=== PATIENT | female | born 1955 | race Caucasian/White ===

== ENCOUNTER 2024-10-27 07:29 | Day surgery (SDC) | payer MEDICARE, OTHER ==
[~2024-10-27] VITALS: Ht 165.1 cm; Wt 88.7 kg
[~2024-10-27 07:29] MED LIST: ALPR.25 PO; ASHWAGANDA PO; Budeprion Xl300 MG PO; CONEST.625; EPIPEN 2-P0.3 MG/0.1 IM; EPIPEN0.3 MG/0.1; FISH OIL 1,0001 EA10 PO; HAIR, SKIN AND1 EAC3 PO; LANREOTIDE120 MG/0.5 SQ; MELO7.5 PO; NYSTATIN100000 UN4; PREMARIN; THYROID60 MG PO; VIT1CAPS12; VITAMIN B125000 MC1 PO; [UNRECOGNIZED DRUG - OTHER] PO
[2024-10-27] MEDS ORDERED: Lactated Ringer's 1,000 ML IV SCH (07:45)
[2024-10-27 08:01] VITALS: BP 115/54
[2024-10-27] MEDS ORDERED: Lidocaine HCl 2% 10 ML SDA ONE (09:02)
[2024-10-27] MEDS ORDERED: propofoL 40 ML IV ONE (09:02)
--- NOTE | 2024-10-27 09:02 | NUR ---
Ambulatory in Day Surgery. History, Chart, Medications and Allergies reviewed before start of procedure. Lungs clear T/O to Auscultation. Patient confirms NPO status and agrees with scheduled surgery. Pre-Op teaching done. Pt verbalizes understanding. Patient States Post-Procedure ride home has been arranged.
--- NOTE | 2024-10-27 09:17 | NUR ---
10/27/24 0917 Yaa Rico MONITOR INTACT WITH CONTINUOUS PULSE OXIMETRY, CONTINUOUS END TITAL CO2, 3-LEAD EKG AND INTERMITTENT BLOOD PRESSURE.
[2024-10-27 09:55] VITALS: BP 127/68
[2024-10-27 10:00] VITALS: BP 114/90
--- NOTE | 2024-10-27 10:13 | NUR ---
D/C INSTRUCTIONS GIVEN TO PT & PT'S , UNDERSTANDING VERBALIZED. PT DENIES PAIN/NAUSEA, VSS, ON RA. PT DRESSED W/ HELP FROM . PT BELONGINGS RETURNED, INCLUDING PURSE. PT WHEELED TO MAIN ENTRANCE WHERE SHE WILL BE DRIVEN HOME BY IN PRIVATE VEHICLE. STEADY GAIT NOTED UPON TRANSFER. NO VISIBLE SIGNS OF DISTRESS NOTED.
== END 2024-10-27 23:00 | disposition home or self-care (01) ==
LOC: ORSCMMR 07:29 → ORD 09:00 → ORSCMMR 09:00
PROVIDERS: Internal Medicine Gastroenterology
PROC: 0DJD8ZZ Inspection of Lower Intestinal Tract, Via Natural or Artificial Opening Endoscopic (ICD-10-PCS; principal; 2024-10-27 09:00)
PROC: 0DJ08ZZ Inspection of Upper Intestinal Tract, Via Natural or Artificial Opening Endoscopic (ICD-10-PCS; principal; 2024-10-27 09:00)
DX: Z85.030 Personal history of malignant carcinoid tumor of large intestine (principal); Z86.0100 Personal history of colon polyps, unspecified; Z98.84 Bariatric surgery status; K21.9 Gastro-esophageal reflux disease without esophagitis; F41.9 Anxiety disorder, unspecified; K57.30 Diverticulosis of large intestine without perforation or abscess without bleeding; Z79.899 Other long term (current) drug therapy
CPT/HCPCS: 82947; J2003; J2704; J7120